=== PATIENT | female | born 1990 | race Caucasian/White ===

== ENCOUNTER 2017-09-16 10:16 | Outpatient (CLI) | payer OTHER ==
[~2017-09-16] VITALS: Ht 162.6 cm; Wt 73.6 kg
[2017-09-16 10:28] VITALS: BP 125/81; PULSE 74; TEMP 98.5
[2017-09-16] MEDS ORDERED: PRENATAL1 TA7 PO (10:28)
[2017-09-16 10:30] VITALS: BP 125/81; PULSE 74
== END 2017-09-16 11:40 | disposition home or self-care (01) ==
LOC: LDRO 10:16
DX: O42.92 Full-term premature rupture of membranes, unspecified as to length of time between rupture and onset of labor (principal); Z3A.39 39 weeks gestation of pregnancy

== ENCOUNTER 2017-09-17 16:59 | Inpatient (IN) | payer OTHER ==
[2017-09-17] VITALS (22 sets, daily range): BP systolic 115–154; BP diastolic 57–92; PULSE 61–85; TEMP 98.2–98.7
[~2017-09-17] VITALS: Ht 162.6 cm; Wt 73.6 kg
[~2017-09-17 16:59] MED LIST: PRENATAL1 TA7 PO
[2017-09-17 18:19] LABS: BASO % 0.3 % (0.0-2.0); EOS # 0.1 (0.0-0.7); EOS % 0.5 % (0-4.0); GRAN # 9.4 (1.4-6.5); GRAN % 70.7 % (42.2-75.2); HEMATOCRIT 38.2 % (37.0-47.0); HEMOGLOBIN 13.2 g/dl (12.5-16.0); LYMPH # 2.7 (1.2-3.4); LYMPH % 20.5 % (20.0-51.0); MEAN CELL VOLUME 93 fl (80.0-100.0); MEAN CORPUSCULAR HEMOGLOBIN 32 pg (27.0-31.0); MEAN CORPUSCULAR HGB CONC 35 g/dl (33.0-37.0); MEAN PLATELET VOLUME 11.9 fl (7.4-10.4); MONO % 7.6 % (1.7-9.3); PLATELET COUNT 256 K/mm3 (130-400); REDCELL DISTRIBUTION WIDTH-CV 13.4 % (11.5-14.5)
[2017-09-18] VITALS (30 sets, daily range): BP systolic 107–141; BP diastolic 59–79; PULSE 62–99; TEMP 97.5–98.9
[2017-09-19 08:00] VITALS: BP 111/73; PULSE 79; TEMP 97.7
[2017-09-19] MEDS ORDERED: MOTRIN 800800 MG/TAB PO (08:38)
[2017-09-19] MEDS ORDERED: PERCOCET 325 MG1 TA2 PO (08:38)
[2017-09-19 16:09] VITALS: BP 133/76; PULSE 83; TEMP 98
== END 2017-09-19 16:40 | disposition home or self-care (01) | DRG 774 ==
LOC: LDRO 16:59 → OB 17:04 → LDR 17:04 → OB 09-18 10:40
PROVIDERS: Obstetrics & Gynecology
PROC: 0KQM0ZZ Repair Perineum Muscle, Open Approach (ICD-10-PCS; principal; 2017-09-18)
PROC: 10E0XZZ Delivery of Products of Conception, External Approach (ICD-10-PCS; 2017-09-18)
DX: O48.0 Post-term pregnancy (principal); O44.03 Complete placenta previa NOS or without hemorrhage, third trimester; O70.1 Second degree perineal laceration during delivery; O99.613 Diseases of the digestive system complicating pregnancy, third trimester; K21.9 Gastro-esophageal reflux disease without esophagitis; O99.02 Anemia complicating childbirth; Z37.0 Single live birth; Z3A.40 40 weeks gestation of pregnancy
CPT/HCPCS: J2210; J2590; J2795; J7120

== ENCOUNTER → 2019-04-16 | Outpatient (CLI) | payer OTHER ==
[~2019-04-16] MED LIST changes: +MOTRIN 800800 MG/TAB PO; +PERCOCET 325 MG1 TA2 PO
== END ==
LOC: MC.RAD 08:28
DX: N63.10 Unspecified lump in the right breast, unspecified quadrant (principal)

== ENCOUNTER → 2019-04-16 | Outpatient (CLI) | payer OTHER | LOC: ZCOL.LAB 14:47 | DX: N61.1 Abscess of the breast and nipple (principal) ==

== ENCOUNTER 2020-08-10 08:16 | Inpatient (IN) | payer OTHER ==
[2020-08-10] VITALS (18 sets, daily range): BP systolic 110–136; BP diastolic 65–85; PULSE 67–120; TEMP 97.6–98
[~2020-08-10] VITALS: Ht 162.6 cm; Wt 71.8 kg
--- NOTE | 2020-08-10 08:25 | NUR ---
Pt arrived on unit ambulatory with complaints of contractions. Pt reports some bloody discharge but denies any leaking of fluid and reports normal movement. EFM and toco monitors started. Vital signs WNL. SVE by this RN /. Dr. Maharaj on the unit and notified of pt's arrival, SVE and ctx pattern. FHR tracing reviewed. Orders for labor admission received.
[2020-08-10 09:17] LABS: BASO % 0.3 % (0.0-2.0); EOS % 0.1 % (0-4.0); GRAN # 10.6 (1.4-6.5); GRAN % 81.6 % (42.2-75.2); HEMATOCRIT 35.8 % (37.0-47.0); HEMOGLOBIN 11.4 g/dl (12.5-16.0); LYMPH # 1.7 (1.2-3.4); LYMPH % 13.1 % (20.0-51.0); MEAN CELL VOLUME 88 fl (80.0-100.0); MEAN CORPUSCULAR HEMOGLOBIN 28 pg (27.0-31.0); MEAN CORPUSCULAR HGB CONC 32 g/dl (33.0-37.0); MEAN PLATELET VOLUME 12.3 fl (7.4-10.4); MONO # 0.6 (0.1-0.6); MONO % 4.4 % (1.7-9.3); PLATELET COUNT 284 K/mm3 (130-400); RED BLOOD COUNT 4.09 M/mm3 (4.10-5.30); REDCELL DISTRIBUTION WIDTH-CV 13.4 % (11.5-14.5)
--- NOTE | 2020-08-10 10:00 | NUR ---
1000-Assumed care of patient. Patient up at bedside. Does not desire epidural. Category I FHR tracing. Contractions palpate firm and [place] tracing regular contractions every 2-[address] Maharaj on unit has reviewed FHR monitor and will return to unit following surgical case.
--- NOTE | 2020-08-10 11:05 | NUR ---
Dr. Maharaj on unit. In to see patient and discuss plan of care. 1110-SVE by /-2, AROM by MD clear fluid noted. Yessica pads changed. Patient continues to manage labor without desire for epidural.
--- NOTE | 2020-08-10 15:45 | NUR ---
1545-Patient ambulates with steady gait to bathroom with standby assist. Easily voids clear yellow urine. Patient to wheelchair and into nursery to see infant. 1600-Oriented to room 219.
--- NOTE | 2020-08-10 18:51 | NUR ---
1159-SVE by this RN /2 patient feeling pressure with contractions. Updated MD. 1210-SVE 100/0 updated MD and requested for delivery, patient room set for delivery. 1220-Dr Maharaj to bedside. 1223-Patient begins pushing with contraction. Moves vertex well. .. 1229- head delivered spontaneously, tight nuchal cord x1 reduced. body slow to continue supine position of bed and patient by this RN. Herbert maneuver and attempt at delivery of posterior arm by MD, body spontaneosly begins to delivery with posterior arm sweep per MD Viable female to mothers abdomen. Care of assumed by SHERICE Yang. Apgars 9. Cord clamped x2 by and cut by FOB. taken to warmer for further evaluation by nursery RN. Cord gasses collected and sent to lab per protocol. 1237-Spontaneous delivery of intact placenta by . Fundal massage firm. Lochia WNL. EBL 200ml. Pitocin bolus per order and protocol. Perineum intact. Yessica care assisted and updated on plan of care and safety.
[2020-08-11 03:00] VITALS: BP 120/66; PULSE 72; TEMP 97.8
[2020-08-11 07:01] LABS: MEAN CELL VOLUME 87 fl (80.0-100.0); MEAN CORPUSCULAR HGB CONC 32 g/dl (33.0-37.0); MEAN PLATELET VOLUME 11.9 fl (7.4-10.4); PLATELET COUNT 219 K/mm3 (130-400); RED BLOOD COUNT 3.43 M/mm3 (4.10-5.30); REDCELL DISTRIBUTION WIDTH-CV 13.4 % (11.5-14.5)
[2020-08-11 07:04] LABS: HEMATOCRIT 29.7 % (37.0-47.0); HEMOGLOBIN 9.6 g/dl (12.5-16.0); MEAN CORPUSCULAR HEMOGLOBIN 28 pg (27.0-31.0)
[2020-08-11 07:45] VITALS: BP 101/55; PULSE 66; TEMP 97.7
--- NOTE | 2020-08-11 07:45 | NUR ---
Rests in bed, alert. Denies any needs at this time.
--- NOTE | 2020-08-11 10:05 | NUR ---
Initial visit attempt; Nurse with patient, Lace Tearing Supervisor left card of congratulations for the of their daughter and information regarding the availability of spiritual care at our hospital.
[2020-08-11] MEDS ORDERED: IBU800 M1 PO (12:52)
--- NOTE | 2020-08-11 16:45 | NUR ---
Discharge instructions given, verbalizes understanding. Dismissed to home, stable, ambulatory, alert.
== END 2020-08-11 16:45 | disposition home or self-care (01) | DRG 807 ==
LOC: LDRO 08:16 → LDR 08:34 → OB 08:34
PROVIDERS: ADMIT Student in an Organized Health Care Education/Training Program
PROC: 10E0XZZ Delivery of Products of Conception, External Approach (ICD-10-PCS; principal; 2020-08-10)
PROC: 10907ZC Drainage of Amniotic Fluid, Therapeutic from Products of Conception, Via Natural or Artificial Opening (ICD-10-PCS; 2020-08-10)
DX: O76 Abnormality in fetal heart rate and rhythm complicating labor and delivery (principal); Z37.0 Single live birth; O66.9 Obstructed labor, unspecified; Z3A.39 39 weeks gestation of pregnancy
CPT/HCPCS: J2210; J2590; J7120

== ENCOUNTER → 2020-09-23 | Outpatient (CLI) | payer OTHER ==
[~2020-09-23] MED LIST changes: +IBU800 M1 PO
--- NOTE | 2020-09-23 15:31 | NUR ---
Pt, Jarrod Winn, presents for outpatient consult with 6 week old baby girl, Mariza Winn, for evaluation due to sore right nipple. Mariza was born on [birth year] and weighed 9#5oz (4224 gms). She has nursed and gained weight well. She weighed 12#10 oz at a recent doctor appointment so we did not do a naked weight at this time, and the focus is the sore nipple. Jarrod has been struggling with a wound to both nipples since the begining for , but because the right side has continued to have an open wound, she desired having the feeding process evaluated. Jarrod has been using Nguyen's Nipple Cream (NNC) for 3+ weeks. She was seen by Savi Crow NETWORK MANAGER for her 6 week appt prior to this consult and granualtion was noted at the edges of the wound. During this feeding it was observed Jarrod has a forceful let down and Mariza comes off the nipple and has some "clacking" that are indicators she is struggling to manage the milk flow. LC discusses ways to help taper letdown and oversupply of milk by using block feeding. Mariza nurses bilaterally and has a weight gain of 7.1oz. POC: Consider taper milk supply to help reduce oversupply and forceful letdown. Continue use of NNC. F/U: As needed with physicians or this LC. Questions invited and answered.
== END ==
LOC: LAC 14:38
DX: Z39.1 Encounter for care and examination of lactating mother (principal); Z71.89 Other specified counseling